=== PATIENT | male | born 1975 | race American Indian/Alaskan Native ===

== ENCOUNTER 2021-08-31 11:37 | Inpatient (IN) | payer SELFPAY ==
[2021-08-31] MEDS ORDERED: SODIUM CHLORIDE 0.9% 1000 ML 1,000 ML IV ONE ×2 (14:47→17:23)
[2021-08-31] MEDS ORDERED: ONDANSETRON 4 MG ODT TAB PO/SL ONE (14:47)
[2021-08-31] MEDS ORDERED: ONDANSETRON 4 MG/2 ML INJ IM ONE (14:55)
[2021-08-31] MEDS ORDERED: ONDANSETRON 4 MG/2 ML INJ IV ONE (14:57)
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
[2021-08-31] MEDS ORDERED: LORazepam 2 MG/ML VIAL ONE (16:17)
[2021-08-31] MEDS ORDERED: levETIRAcetam 1000 MG/NS 0.75% 1,000 MG/100 ML BAG IV ONE (16:20)
[2021-08-31] MEDS ORDERED: LORazepam 2 MG/ML VIAL IV ONE (16:20)
[2021-08-31 16:21] LABS: Alanine Aminotransferase 15 units/L (7-56); Albumin 4.6 g/dL (3.9-5); BUN/Creatinine Ratio 13; Blood Urea Nitrogen 12 mg/dL (9-20); Calcium 9.5 mg/dL (8.4-10.2); Hemolysis Index 32
[2021-08-31 16:27] LABS: Bilirubin,Direct < 0.2 mg/dL (0-0.2)
[2021-08-31 16:32] LABS: Hematocrit 47.6 % (35.5-45.6); Hemoglobin 15.4 gm/dl (11.8-15.2); Mean Corpuscular HGB Conc 32 % (32-34); Mean Corpuscular Volume 94 fl (84-94); Platelet Count 298 K/mm3 (140-440); Red Blood Count 5.07 M/mm3 (3.65-5.03)
[2021-08-31] MEDS ORDERED: cefTRIAXone/NS 2 GM/100 ML 2 GM/100 ML BAG IV ONE (16:51)
[2021-08-31] MEDS ORDERED: VANCOMYCIN 1,250 MG in SODIUM CHLORIDE 0.9% 500 ML 500 ML IV ONE (16:51)
--- NOTE | 2021-08-31 16:52 | Emergency Department Report ---
Blank Doc - Documentation Documentation: [facility] Consult Note # Demographics Consult Type: General Neurology Patient Location: Emergency Room First Name: Miguel A Last Name: Haseeb Date of : 1975 Age: 46 Gender: Male Facility: [facility] Time of Initial Page ( Time): 08/31/2021, 16:30 Time of Return Call ( Time): 08/31/2021, 16:31 # HPI History: pt had N/V since night prior. had a seizure while getting a chest xray. reporting that the weekend started last night. much of his history is not known at this time # Scores Time of exam and NIHSS (): 08/31/2021, 16:39 Level of Consciousness 1a: [0] = Alert; keenly responsive LOC Questions 1b: [2] = Answers neither correctly LOC Commands 1c: [0] = Performs both tasks correctly Best Gaze 2: [0] = Normal Visual 3: [0] = No visual loss Facial Palsy 4: [0] = Normal symmetrical movements Motor Arm Left 5a: [1] = Drift Motor Arm Right 5b: [1] = Drift Motor Leg Left 6a: [3] = No effort against gravity Motor Leg Right 6b: [3] = No effort against gravity Limb Ataxia 7: [0] = Absent Sensory 8: [0] = Normal Best Language 9: [0] = No aphasia Dysarthria 10: [1] = Kiio-fb-mvdgnzms dysarthria Extinction and Inattention 11: [0] = No abnormality NIHSS Total: 11 # Assessment Impression: Seizure Todds Paralysis # Plan Thrombolytic/Intervention: NOT IV Thrombolysis or IA Intervention candidate Thrombolytic Exclusion (< 3 hour window): other (see below) Thrombolytic Exclusion: seizure Thrombolytic/Intraarterial Exclusion: IV thrombolytic and IA intervention considered but not recommended as this patient's symptoms are not clinically consistent with an assumed diagnosis of stroke Imaging: (urgency: STAT): CT Angiogram Head and CT Angiogram Neck AND call back with results if abnormal Imaging: (urgency: routine): MRI Brain with AND without contrast Diagnostic Test: EEG Other: seizure precautions I have discussed my recommendations with the referring provider # Logistics Telemedicine: Interactive 2 way audio and visual telecommunication technology was utilized during this visit
--- NOTE | 2021-08-31 16:54 | XRay Report ---
CHEST 2 VIEWS INDICATION / CLINICAL INFORMATION: abd pain. COMPARISON: Chest x-ray 01/21/2012 FINDINGS: SUPPORT DEVICES: None. HEART / MEDIASTINUM: No significant abnormality. LUNGS / PLEURA: No significant pulmonary or pleural abnormality. No pneumothorax. ADDITIONAL FINDINGS: No significant additional findings. IMPRESSION: 1. No acute findings. Signer Name: Satinder Gross MD Signed: 08/31/2021 4:50 PM Workstation Name: [id number]
[2021-08-31] MEDS ORDERED: levETIRAcetam 500 MG in DEXTROSE 5% IN WATER 100 ML IV ONE (17:00)
[2021-08-31 17:07] LABS: INR 0.84 (0.87-1.13)
[2021-08-31 17:08] LABS: Partial Thromboplastin Time 25.7 Sec. (24.2-36.6)
[2021-08-31] MEDS ORDERED: VANCOMYCIN 1,750 MG in SODIUM CHLORIDE 0.9% 500 ML 500 ML IV ONE (18:00)
[2021-08-31 18:17] LABS: Creatine Kinase MB 3.2 ng/mL (0.0-4.0)
[2021-08-31 18:19] LABS: Alanine Aminotransferase 14 units/L (7-56); Albumin 4.1 g/dL (3.9-5); Blood Urea Nitrogen 10 mg/dL (9-20); Calcium 8.7 mg/dL (8.4-10.2); Hemolysis Index 14
[2021-08-31 18:20] LABS: BUN/Creatinine Ratio 14
[2021-08-31 18:26] LABS: Hematocrit 38.4 % (35.5-45.6); Hemoglobin 13.5 gm/dl (11.8-15.2); Mean Corpuscular HGB Conc 35 % (32-34); Mean Corpuscular Volume 92 fl (84-94); Platelet Count 282 K/mm3 (140-440); Red Blood Count 4.18 M/mm3 (3.65-5.03); Red Cell Distribution Width 13.4 % (13.2-15.2)
--- NOTE | 2021-08-31 19:43 | Cat Scan Report ---
CT CHEST, ABDOMEN, AND PELVIS WITH CONTRAST INDICATION / CLINICAL INFORMATION: Chest/abdominal pain. Seizure. TECHNIQUE: Axial CT images were obtained through the chest, abdomen, and pelvis after Omnipaque 350, [address] scans at this location are performed using CT dose reduction for ALARA by means of automated exposure control. COMPARISON: None available. FINDINGS: HEART/VASCULAR STRUCTUES: No significant abnormality. MEDIASTINUM / JANNETH: Mild residual thymic tissue anterior mediastinum. PLEURA: No pleural effusion. No pneumothorax. LUNGS: Mild dependent patchy opacity. Mild nodular patchy opacity at the inferior aspect of the right upper lobe. ADDITIONAL CHEST FINDINGS: None. LIVER: No significant abnormality. GALLBLADDER: No significant abnormality. BILE DUCTS: No significant abnormality. PANCREAS: No significant abnormality. SPLEEN: No significant abnormality. ADRENALS: No significant abnormality. RIGHT KIDNEY / URETER: No significant abnormality. LEFT KIDNEY / URETER: No significant abnormality. STOMACH and SMALL BOWEL: No significant abnormality. COLON: No significant abnormality. APPENDIX: No significant abnormality. PERITONEUM: No free fluid. No free air. No fluid collection. LYMPH NODES: No significant adenopathy. VASCULAR STRUCTURES: No significant abnormality. URINARY BLADDER: No significant abnormality. REPRODUCTIVE ORGANS: No significant abnormality. ADDITIONAL FINDINGS: Small fat-containing right inguinal hernia. SKELETAL SYSTEM: No significant abnormality. IMPRESSION: 1. Bibasilar atelectasis and mild pneumonia. 2. No acute inflammatory process at the abdomen or pelvis. Signer Name: Julius Perry MD Signed: 08/31/2021 7:38 PM Workstation Name: [id number]
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
--- NOTE | 2021-08-31 19:51 | Cat Scan Report ---
CT angio neck INDICATION / CLINICAL INFORMATION: 46 years Male; stroke sx. TECHNIQUE: Thin cut axial images obtained through the head during IV bolus contrast administration. S agittal, coronal, and 3 plane MIP reconstructions performed by the technologist. NASCET type criteria used evaluate stenoses. All CT scans at this location are performed using CT dose reduction for ALAR A by means of automated exposure control. . COMPARISON: None available. FINDINGS: ARCH: The aortic arch was not included on this exam. CAROTID ARTERIES: The visualized common and internal carotid arteries are widely patent. VERTEBRAL ARTERIES: Slight left dominant vertebral system seen. No significant stenosis appreciated. 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 Disc space narrowing seen at C4-5 and to some degree at other levels. Focal disc disease is seen. Borderline canal narrowing s uggested at C3-4 and perhaps C4-5. Moderate osseous foraminal narrowing is seen on the left at C4-5, C5-6, C6-7 from uncinate hypertrophy. Similar findings seen on the right from C4-5 through C7-T1. IMPRESSION: 1. No significant stenosis appreciated on this limited CTA of the neck. 2. Degenerative changes of the cervical spine as described above. Signer Name: Steve Hinds MD, III Signed: 08/31/2021 7:47 PM Workstation Name: [id number]
[2021-08-31 22:34] LABS: Anisocytosis 1+; Basophils % (Manual) 0 % (0.0-1.8); Eosinophils % (Manual) 0 % (0.0-4.3); Monocytes % (Manual) 0 % (0.0-7.3); Platelet Estimate Consistent w Auto; Total Cells Counted 100
[2021-08-31] MEDS ORDERED: ONDANSETRON 4 MG/2 ML INJ IV PRN (22:39)
[2021-08-31] MEDS ORDERED: MORPHINE 4 MG/1 ML INJ IV PRN (22:39)
[2021-08-31] MEDS ORDERED: PROMETHAZINE 25 MG RECT SUPP PR PRN (22:39)
[2021-08-31] MEDS ORDERED: MORPHINE 2 MG/1 ML INJ IV PRN (22:39)
[2021-08-31] MEDS ORDERED: MAGNESIUM HYDROXIDE (MOM) ORAL LIQD UDC PO PRN ×2 (22:39)
[2021-08-31] MEDS ORDERED: METOCLOPRAMIDE 10 MG TAB PO PRN (22:39)
--- NOTE | 2021-08-31 22:55 | History and Physical Report ---
History of Present Illness Date of examination: 08/31/21 Date of admission: 08/31/2021 Chief complaint: Nausea and Vomiting Abdominal Pain History of present illness: 46-year-old -[place] male with no significant past medical history presents to the emergency room via EMS today complaining of nausea and vomiting with associated generalized abdominal pain which has been ongoing for about 24 hours. Patient has not been quite coherent with this responses however most of the history was gotten from the ER staff. Patient received Zofran and some IV fluid upon arrival in the emergency room with minimal improvement. There has been no history of fever or chills, no chest pain or shortness of breath, no headache or dizziness and no diaphoresis. During the course of patient's stay in the emergency room, he was sent to the radiology department to have an x-ray done which she had a tonic-clonic seizure. There is no known history of seizure disorder. There was no urinary or fecal incontinence. No head injury. He was said to have had some facial asymmetry and some right-sided weakness after the seizure disorder. Neurologist was subsequently consulted and recommendation is to have patient undergo MRI of the brain and EEG. Patient was thereafter loaded with IV Keppra. Work-up in the emergency room today, CT chest shows bibasilar atelectasis and mild pneumonia CT of the abdomen and pelvis shows no acute abnormalities. Labs reveals a leukocytosis of 16.4, hemoglobin of 15.4 and hematocrit of 47.6. Urinalysis was unremarkable. Urine drug screen was positive for cocaine and marijuana. Past History Past Medical History: No medical history Past Surgical History: No surgical history Social history: no significant social history Family history: no significant family history Medications and Allergies Allergies Allergy/AdvReac Type Severity Reaction Status Date / Time No Known Allergies Allergy Verified 08/31/21 11:46 Active Meds: Active Medications Acetaminophen (Acetaminophen 325 Mg Tab) 650 mg PO Q4H PRN PRN Reason: Pain MILD(1-3)/Fever >100.5/FIGUEROA Aspirin (Aspirin 325 Mg Tab) 325 mg PO QDAY JAN Atorvastatin Calcium (Atorvastatin 40 Mg Tab) 40 mg PO QHS JAN Bisacodyl (Bisacodyl 10 Mg Rect Supp) 10 mg SC QDAY PRN PRN Reason: Constipation Sodium Chloride (Nacl 0.9% 1000 Ml) 1,000 mls @ 125 mls/hr IV DIRECT JAN Magnesium Hydroxide (Magnesium Hydroxide (Mom) Oral Liqd Udc) 30 ml PO Q4H PRN PRN Reason: Constipation Magnesium Hydroxide (Magnesium Hydroxide (Mom) Oral Liqd Udc) 30 ml PO Q4H PRN PRN Reason: Constipation Metoclopramide HCl (Metoclopramide 10 Mg Tab) 10 mg PO Q6H PRN PRN Reason: Nausea And Vomiting Morphine Sulfate (Morphine 2 Mg/1 Ml Inj) 2 mg IV Q4H PRN PRN Reason: Pain, Moderate (4-6) Morphine Sulfate (Morphine 4 Mg/1 Ml Inj) 4 mg IV Q4H PRN PRN Reason: Pain , Severe (7-10) Ondansetron HCl (Ondansetron 4 Mg/2 Ml Inj) 4 mg IV Q8H PRN PRN Reason: Nausea And Vomiting Ondansetron HCl (Ondansetron 4 Mg/2 Ml Inj) 4 mg IV Q8H PRN PRN Reason: Nausea And Vomiting Promethazine HCl (Promethazine 25 Mg Rect Supp) 25 mg SC Q6H PRN PRN Reason: Nausea And Vomiting Sodium Chloride (Sodium Chloride 0.9% 10 Ml Flush Syringe) 10 ml IV BID JAN Sodium Chloride (Sodium Chloride 0.9% 10 Ml Flush Syringe) 10 ml IV PRN PRN PRN Reason: LINE FLUSH Sodium Chloride (Sodium Chloride 0.9% 10 Ml Flush Syringe) 10 ml INJ PRN PRN PRN Reason: LINE FLUSH Review of Systems Constitutional: no fever, no chills Ears, nose, mouth and throat: no nasal congestion, no sore throat Cardiovascular: no chest pain, no palpitations Respiratory: no cough, no shortness of breath Gastrointestinal: no abdominal pain, no nausea, no vomiting, no diarrhea Genitourinary Male: no dysuria, no hematuria, no flank pain Musculoskeletal: no neck pain, no low back pain Integumentary: no rash, no pruritis Neurological: seizures, no headaches, no confusion Psychiatric: no anxiety, no depression Endocrine: no polyphagia, no polydipsia, no polyuria, no nocturia Exam - Constitutional Vitals: Temp Pulse Resp BP Pulse Ox 98.7 F 85 17 147/82 98 08/31/21 11:45 08/31/21 18:30 08/31/21 18:30 08/31/21 18:30 08/31/21 18:30 General appearance: Present: no acute distress, well-nourished - EENT Eyes: Present: PERRL, EOM intact. Absent: scleral icterus ENT: hearing intact, clear oral mucosa, dentition normal - Neck Neck: Present: supple, normal ROM - Respiratory Respiratory effort: normal Respiratory: bilateral: CTA - Cardiovascular Rhythm: regular Heart Sounds: Present: S1 & S2. Absent: gallop, systolic murmur, diastolic murmur, rub, click - Extremities Extremities: no ischemia, pulses intact, pulses symmetrical, No edema, normal temperature, normal color, Full ROM Peripheral Pulses: within normal limits - Abdominal General gastrointestinal: Present: soft, non-tender, non-distended, normal bowel sounds. Absent: mass - Integumentary Integumentary: Present: clear, warm, dry, normal turgor. Absent: rash - Musculoskeletal Musculoskeletal: strength equal bilaterally - Psychiatric Psychiatric: appropriate mood/affect, intact judgment & insight, memory intact, cooperative - Neurologic Neurologic: CNII-XII intact, no focal deficits, moves all extremities, other (Appears lethargic) HEART Score - HEART Score Troponin: Troponin T < 0.010 ng/mL (0.00-0.029) 08/31/21 16:45 Results - Labs CBC & Chem 7: 08/31/21 18:19 08/31/21 16:45 Labs: Abnormal lab results 08/31/21 08/31/21 08/31/21 Range/Units 14:44 14:45 16:08 WBC 16.4 H (4.5-11.0) K/mm3 RBC 5.07 H (3.65-5.03) M/mm3 Hgb 15.4 H (11.8-15.2) gm/dl Hct 47.6 H (35.5-45.6) % MCHC (32-34) % Seg Neuts % (Manual) 99.0 H (40.0-70.0) % Lymphocytes % (Manual) 1.0 L (13.4-35.0) % Seg Neutrophils # Man 16.2 H (1.8-7.7) K/mm3 Lymphocytes # (Manual) 0.2 L (1.2-5.4) K/mm3 INR 0.84 L (0.87-1.13) Carbon Dioxide 19 L (22-30) mmol/L Creatinine (0.8-1.3) mg/dL Glucose 137 H (75-100) mg/dL POC Glucose (70-105) mg/dL Total Creatine Kinase (55-170) units/L Lipase 12 L (13-60) units/L Salicylates (2.8-20.0) mg/dL Acetaminophen (10.0-30.0) ug/mL 08/31/21 08/31/21 08/31/21 Range/Units 16:08 16:08 16:25 WBC (4.5-11.0) K/mm3 RBC (3.65-5.03) M/mm3 Hgb (11.8-15.2) gm/dl Hct (35.5-45.6) % MCHC (32-34) % Seg Neuts % (Manual) (40.0-70.0) % Lymphocytes % (Manual) (13.4-35.0) % Seg Neutrophils # Man (1.8-7.7) K/mm3 Lymphocytes # (Manual) (1.2-5.4) K/mm3 INR (0.87-1.13) Carbon Dioxide (22-30) mmol/L Creatinine (0.8-1.3) mg/dL Glucose (75-100) mg/dL POC Glucose 128 H (70-105) mg/dL Total Creatine Kinase (55-170) units/L Lipase (13-60) units/L Salicylates < 0.3 L (2.8-20.0) mg/dL Acetaminophen 5.0 L (10.0-30.0) ug/mL 08/31/21 08/31/21 Range/Units 16:45 18:19 WBC 14.2 H (4.5-11.0) K/mm3 RBC (3.65-5.03) M/mm3 Hgb (11.8-15.2) gm/dl Hct (35.5-45.6) % MCHC 35 H (32-34) % Seg Neuts % (Manual) (40.0-70.0) % Lymphocytes % (Manual) (13.4-35.0) % Seg Neutrophils # Man (1.8-7.7) K/mm3 Lymphocytes # (Manual) (1.2-5.4) K/mm3 INR (0.87-1.13) Carbon Dioxide 20 L (22-30) mmol/L Creatinine 0.7 L (0.8-1.3) mg/dL Glucose 132 H (75-100) mg/dL POC Glucose (70-105) mg/dL Total Creatine Kinase 283 H (55-170) units/L Lipase (13-60) units/L Salicylates (2.8-20.0) mg/dL Acetaminophen (10.0-30.0) ug/mL Assessment and Plan - Patient Problems (1) New onset seizure Current Visit: Yes Status: Acute Plan to address problem: Patient will be placed on seizure precautions. We will schedule for EEG. Patient started on Keppra. Consult placed to neurologist for evaluation and recommendations. (2) Acute CVA (cerebrovascular accident) Current Visit: Yes Status: Acute Plan to address problem: Patient will be scheduled for MRI of the brain, carotid Doppler and echocardiogram. We will await further evaluation and recommendations from neurology. (3) Nausea & vomiting Current Visit: Yes Status: Acute Plan to address problem: Etiology unclear. Will place patient on antiemetic. Patient also placed on IV fluid. (4) Abdominal pain Current Visit: Yes Status: Acute Plan to address problem: We will place on IV analgesic medication as needed. (5) Positive urine drug screen Current Visit: Yes Status: Acute Plan to address problem: UDS was positive for cocaine and marijuana. Patient will be counseled against illicit drug use prior to discharge. We will continue to monitor closely. (6) Pneumonia Current Visit: Yes Status: Acute Plan to address problem: CT chest reveals marked pneumonia. Patient will be placed on empiric IV antibiotics. Unknown if patient is fully vaccinated against COVID-19. (7) DVT prophylaxis Current Visit: Yes Status: Acute Plan to address problem: Patient placed on subcutaneous heparin. (8) Full code status Current Visit: Yes Status: Acute Plan to address problem: Patient is full code.
[2021-08-31 23:01] LABS: Anisocytosis 1+; Basophils % (Manual) 0 % (0.0-1.8); Eosinophils % (Manual) 0 % (0.0-4.3); Platelet Estimate Consistent w Auto; Total Cells Counted 100
[2021-08-31 23:06] LABS: Bacteria,Urine 1+ /HPF (Negative); Bilirubin,Urine NEG (Negative); Blood,Urine SM (Negative); Color,Urine Straw (Yellow); Mucus,Urine FEW /HPF; Protein,Urine <15 mg/dL mg/dL (Negative); Urobilinogen,Urine < 2.0 mg/dL (<2.0)
[2021-08-31 23:07] LABS: Amphetamine Screen,Urine PRESUMPTIVE NEGATIVE; Benzodiazepines Screen,Urine PRESUMPTIVE NEGATIVE; Cannabinoid Screen,Urine PRESUMPTIVE POSITIVE; Cocaine Screen,Urine PRESUMPTIVE POSITIVE; Methadone Screen,Urine PRESUMPTIVE NEGATIVE; Opiate Screen,Urine PRESUMPTIVE NEGATIVE
[2021-09-01] LABS: Creatine Kinase MB 4.5 ng/mL (0.0-4.0)
[2021-09-01 02:09] LABS: C-Reactive Protein 4.4 mg/dL (0.00-1.30)
[2021-09-01 05:00] LABS: Hematocrit 45.7 % (35.5-45.6); Hemoglobin 14.7 gm/dl (11.8-15.2); Mean Corpuscular HGB Conc 32 % (32-34); Mean Corpuscular Volume 94 fl (84-94); Platelet Count 313 K/mm3 (140-440); Red Blood Count 4.88 M/mm3 (3.65-5.03); Red Cell Distribution Width 13.7 % (13.2-15.2)
[2021-09-01 05:05] LABS: BUN/Creatinine Ratio 10; Blood Urea Nitrogen 8 mg/dL (9-20); Calcium 8.8 mg/dL (8.4-10.2); Hemolysis Index 3
[2021-09-01] MEDS: SODIUM CHLORIDE 0.9% 1000 ML 1,000 ML IV SCH (06:02)
[2021-09-01] MEDS: HEPARIN 5,000 UNIT/1 ML VIAL SUB-Q SCH ×3 (06:10→21:17)
[2021-09-01 08:21] LABS: Basophils % (Manual) 0 % (0.0-1.8); Eosinophils % (Manual) 0 % (0.0-4.3); Total Cells Counted 100
[2021-09-01 08:22] LABS: Anisocytosis 1+; Platelet Estimate Consistent w Auto; Toxic Granulation 1+; Toxic Vacuolation Few
--- NOTE | 2021-09-01 08:45 | Cat Scan Report ---
CT head/brain wo con INDICATION / CLINICAL INFORMATION: 46 years Male; seizure. TECHNIQUE: Routine CT head without contrast. All CT scans at this location are performed using CT dos e reduction for ALARA by means of automated exposure control. COMPARISON: None. FINDINGS: BRAIN / INTRACRANIAL CONTENTS: No acute hemorrhage, mass effect, midline shift, hydrocephalus, or acu te, large territorial infarct. No signs of significant atrophy or chronic infarct. No significant whi te matter abnormality seen. CRANIOCERVICAL JUNCTION: No significant abnormality. ORBITS: No significant abnormality of visualized orbits. SINUSES / MASTOIDS: Mild mucosal thickening in the ethmoids. ADDITIONAL FINDINGS: None. IMPRESSION: 1. No focal mass, hemorrhage, hydrocephalus, or acute, large territorial infarct. Signer Name: Steve Hinds MD, III Signed: 08/31/2021 7:26 PM Workstation Name: [id number]
--- NOTE | 2021-09-01 09:08 | Consultation ---
History of Present Illness Consult date: 09/01/21 Reason for Consult: New onset seizure,recreational drug abuse, History of present illness: Nausea and Vomiting Abdominal Pain History of present illness: 46-year-old -Greek male with no significant past medical history presents to the emergency room via EMS today complaining of nausea and vomiting with associated generalized abdominal pain which has been ongoing for about 24 hours. Patient has not been quite coherent with this responses however most of the history was gotten from the ER staff. Patient received Zofran and some IV fluid upon arrival in the emergency room with minimal improvement. There has been no history of fever or chills, no chest pain or shortness of breath, no headache or dizziness and no diaphoresis. During the course of patient's stay in the emergency room, he was sent to the radiology department to have an x-ray done which she had a tonic-clonic seizure. There is no known history of seizure disorder. There was no urinary or fecal incontinence. No head injury. He was said to have had some facial asymmetry and some right-sided weakness after the seizure disorder. Neurologist was subsequently consulted and recommendation is to have patient undergo MRI of the brain and EEG. Patient was thereafter loaded with IV Keppra. Work-up in the emergency room today, CT chest shows bibasilar atelectasis and mild pneumonia CT of the abdomen and pelvis shows no acute abnormalities. Labs reveals a leukocytosis of 16.4, hemoglobin of 15.4 and hematocrit of 47.6. Urinalysis was unremarkable. Urine drug screen was positive for cocaine and marijuana. Past History Past Medical History: No medical history Past Surgical History: No surgical history Social history: no significant social history Family history: no significant family history Medications and Allergies Allergies Allergy/AdvReac Type Severity Reaction Status Date / Time No Known Allergies Allergy Verified 08/31/21 11:46 Active Meds: Active Medications Acetaminophen (Acetaminophen 325 Mg Tab) 650 mg PO Q4H PRN PRN Reason: Pain MILD(1-3)/Fever >100.5/FIGUEROA Aspirin (Aspirin 325 Mg Tab) 325 mg PO QDAY JAN Atorvastatin Calcium (Atorvastatin 40 Mg Tab) 40 mg PO QHS JAN Bisacodyl (Bisacodyl 10 Mg Rect Supp) 10 mg UT QDAY PRN PRN Reason: Constipation Sodium Chloride (Nacl 0.9% 1000 Ml) 1,000 mls @ 125 mls/hr IV DIRECT JAN Magnesium Hydroxide (Magnesium Hydroxide (Mom) Oral Liqd Udc) 30 ml PO Q4H PRN PRN Reason: Constipation Magnesium Hydroxide (Magnesium Hydroxide (Mom) Oral Liqd Udc) 30 ml PO Q4H PRN PRN Reason: Constipation Metoclopramide HCl (Metoclopramide 10 Mg Tab) 10 mg PO Q6H PRN PRN Reason: Nausea And Vomiting Morphine Sulfate (Morphine 2 Mg/1 Ml Inj) 2 mg IV Q4H PRN PRN Reason: Pain, Moderate (4-6) Morphine Sulfate (Morphine 4 Mg/1 Ml Inj) 4 mg IV Q4H PRN PRN Reason: Pain , Severe (7-10) Ondansetron HCl (Ondansetron 4 Mg/2 Ml Inj) 4 mg IV Q8H PRN PRN Reason: Nausea And Vomiting Ondansetron HCl (Ondansetron 4 Mg/2 Ml Inj) 4 mg IV Q8H PRN PRN Reason: Nausea And Vomiting Promethazine HCl (Promethazine 25 Mg Rect Supp) 25 mg UT Q6H PRN PRN Reason: Nausea And Vomiting Sodium Chloride (Sodium Chloride 0.9% 10 Ml Flush Syringe) 10 ml IV BID JAN Sodium Chloride (Sodium Chloride 0.9% 10 Ml Flush Syringe) 10 ml IV PRN PRN PRN Reason: LINE FLUSH Sodium Chloride (Sodium Chloride 0.9% 10 Ml Flush Syringe) 10 ml INJ PRN PRN PRN Reason: LINE FLUSH Review of Systems Constitutional: no fever, no chills Ears, nose, mouth and throat: no nasal congestion, no sore throat Cardiovascular: no chest pain, no palpitations Respiratory: no cough, no shortness of breath Gastrointestinal: no abdominal pain, no nausea, no vomiting, no diarrhea Genitourinary Male: no dysuria, no hematuria, no flank pain Musculoskeletal: no neck pain, no low back pain Integumentary: no rash, no pruritis Neurological: seizures, no headaches, no confusion Psychiatric: no anxiety, no depression Endocrine: no polyphagia, no polydipsia, no polyuria, no nocturia Exam Past History Past Medical History: No medical history Past Surgical History: No surgical history Social history: no significant social history Family history: no significant family history Medications and Allergies Allergies Allergy/AdvReac Type Severity Reaction Status Date / Time No Known Allergies Allergy Verified 08/31/21 11:46 Active Meds: Active Medications Acetaminophen (Acetaminophen 325 Mg Tab) 650 mg PO Q4H PRN PRN Reason: Pain MILD(1-3)/Fever >100.5/FIGUEROA Aspirin (Aspirin 325 Mg Tab) 325 mg PO QDAY JAN Atorvastatin Calcium (Atorvastatin 40 Mg Tab) 40 mg PO QHS JAN Bisacodyl (Bisacodyl 10 Mg Rect Supp) 10 mg UT QDAY PRN PRN Reason: Constipation Heparin Sodium (Porcine) (Heparin 5,000 Unit/1 Ml Vial) 5,000 unit SUB-Q Q8HR JAN Last Admin: 09/01/21 06:10 Dose: 5,000 unit Sodium Chloride (Nacl 0.9% 1000 Ml) 1,000 mls @ 125 mls/hr IV DIRECT JAN Last Admin: 09/01/21 06:02 Dose: 125 mls/hr Levetiracetam 500 mg/ Dextrose 105 mls @ 400 mls/hr IV Q12HR JAN Levofloxacin/Dextrose (Levaquin 750mg/150ml) 750 mg in 150 mls @ 100 mls/hr IV Q24HR JAN; Protocol Last Admin: 09/01/21 04:03 Dose: 100 mls/hr Magnesium Hydroxide (Magnesium Hydroxide (Mom) Oral Liqd Udc) 30 ml PO Q4H PRN PRN Reason: Constipation Metoclopramide HCl (Metoclopramide 10 Mg Tab) 10 mg PO Q6H PRN PRN Reason: Nausea And Vomiting Morphine Sulfate (Morphine 2 Mg/1 Ml Inj) 2 mg IV Q4H PRN PRN Reason: Pain, Moderate (4-6) Morphine Sulfate (Morphine 4 Mg/1 Ml Inj) 4 mg IV Q4H PRN PRN Reason: Pain , Severe (7-10) Ondansetron HCl (Ondansetron 4 Mg/2 Ml Inj) 4 mg IV Q8H PRN PRN Reason: Nausea And Vomiting Promethazine HCl (Promethazine 25 Mg Rect Supp) 25 mg UT Q6H PRN PRN Reason: Nausea And Vomiting Sodium Chloride (Sodium Chloride 0.9% 10 Ml Flush Syringe) 10 ml IV BID JAN Sodium Chloride (Sodium Chloride 0.9% 10 Ml Flush Syringe) 10 ml IV PRN PRN PRN Reason: LINE FLUSH Physical Examination - Vital Signs Vital Signs: Vital Signs Temp Pulse Resp BP Pulse Ox 98.7 F 83 21 140/82 97 08/31/21 11:45 08/31/21 11:45 08/31/21 11:45 08/31/21 11:45 08/31/21 11:45 - Constitutional General appearance: uncomfortable, other (nausea and hives) - EENT EENT: Present: PERRL, mucous membranes moist - Respiratory Respiratory: Present: lungs clear, rhonchi - Cardiovascular Cardiovascular: Present: regular rate, normal S1, normal S2 Extremities: Present: no peripheral edema bilatateraly, no clubbing, cyanosis - Gastrointestinal Gastrointestinal: Present: normoactive bowel sounds - Integumentary Integumentary: Present: normal - Neurologic Cranial nerve examination: PERRL, EOMI, intact Speech examination: intact Sensorimotor examination: intact Detailed motor examination: grossly full strength in - Level of Consciousness 1a. Level of Consciousness: alert/keenly responsive - LOC Questions 1b. LOC Questions: answers both correctly - LOC Command 1c. LOC Commands: performs tasks correctly - Best Gaze 2. Best Gaze: normal - Visual 3. Visual: no visual loss - Facial Palsy 4. Facial Palsy: normal symmetrical movement - Motor Arm 5a. Motor Arm Left: no drift 5b. Motor Arm Right: no drift - Motor Leg 6a. Motor Leg Left: no drift 6b. Motor Leg Right: no drift - Limb Ataxia 7. Limb Ataxia: absent - Sensory 8. Sensory: normal - Best Language 9. Best Language: no aphasia - Dysarthria 10. Dysarthria: normal - Extinction and Inattention 11. Extinction/Inattention: no abnormality - Scoring Total Score: 0 Stroke Severity: No Stroke Symptoms Results - Laboratory Findings CBC and BMP: 09/01/21 04:24 09/01/21 04:24 Abnormal Lab Findings: Abnormal Labs 08/31/21 08/31/21 08/31/21 14:44 14:45 16:08 WBC 16.4 H RBC 5.07 H Hgb 15.4 H Hct 47.6 H MCHC Seg Neuts % (Manual) 99.0 H Lymphocytes % (Manual) 1.0 L Seg Neutrophils # Man 16.2 H Lymphocytes # (Manual) 0.2 L INR 0.84 L Carbon Dioxide 19 L BUN Creatinine Glucose 137 H POC Glucose Lactate Dehydrogenase Total Creatine Kinase CK-MB (CK-2) C-Reactive Protein Lipase 12 L Salicylates Acetaminophen 08/31/21 08/31/21 08/31/21 16:08 16:08 16:25 WBC RBC Hgb Hct MCHC Seg Neuts % (Manual) Lymphocytes % (Manual) Seg Neutrophils # Man Lymphocytes # (Manual) INR Carbon Dioxide BUN Creatinine Glucose POC Glucose 128 H Lactate Dehydrogenase Total Creatine Kinase CK-MB (CK-2) C-Reactive Protein Lipase Salicylates < 0.3 L Acetaminophen 5.0 L 08/31/21 08/31/21 08/31/21 16:45 18:19 23:02 WBC 14.2 H RBC Hgb Hct MCHC 35 H Seg Neuts % (Manual) 95.0 H Lymphocytes % (Manual) 2.0 L Seg Neutrophils # Man 13.5 H Lymphocytes # (Manual) 0.3 L INR Carbon Dioxide 20 L BUN Creatinine 0.7 L Glucose 132 H POC Glucose Lactate Dehydrogenase Total Creatine Kinase 283 H 414 H CK-MB (CK-2) 4.5 H C-Reactive Protein Lipase Salicylates Acetaminophen 08/31/21 09/01/21 09/01/21 23:48 04:24 04:24 WBC 14.5 H RBC Hgb Hct 45.7 H D MCHC Seg Neuts % (Manual) 88.0 H Lymphocytes % (Manual) 9.0 L Seg Neutrophils # Man 12.8 H Lymphocytes # (Manual) INR Carbon Dioxide 21 L BUN 8 L Creatinine Glucose POC Glucose Lactate Dehydrogenase 188 H Total Creatine Kinase CK-MB (CK-2) C-Reactive Protein 4.40 H Lipase Salicylates Acetaminophen 09/01/21 05:13 WBC RBC Hgb Hct MCHC Seg Neuts % (Manual) Lymphocytes % (Manual) Seg Neutrophils # Man Lymphocytes # (Manual) INR Carbon Dioxide BUN Creatinine Glucose POC Glucose 127 H Lactate Dehydrogenase Total Creatine Kinase CK-MB (CK-2) C-Reactive Protein Lipase Salicylates Acetaminophen Assessment and Plan Assessment and Plan 46-year-old -Greek male with no significant past medical history presents to the emergency room via EMS today complaining of nausea and vomiting with associated generalized abdominal pain which has been ongoing for about 24 hours. Patient has not been quite coherent with this responses however most of the history was gotten from the ER staff. Patient received Zofran and some IV fluid upon arrival in the emergency room with minimal improvement. There has been no history of fever or chills, no chest pain or shortness of br eath, no headache or dizziness and no diaphoresis. During the course of patient's stay in the emergency room, he was sent to the radiology department to have an x-ray done which she had a tonic-clonic seizure. There is no known history of seizure disorder. There was no urinary or fecal incontinence. - Patient Problems # New onset seizure - witnessed in ER -Normal neurological exam -recurrent nausea and vomiting -Recreational drug intake -NIH#0 -CT brain is unremarkable -MRI brain with gd is unremarkable -EEG is pending -Seizure precaution, no driving -? not sure if keppra is needed # Acute CVA (cerebrovascular accident) - facial droop on presentation -MRI brain is unremarkable -Recreational drug intake -Echo is with 55-60% EF, bubble study is unremarkable -? ASA 81 mg -stop recreational drugs # Nausea & vomiting -CT chest and abdomen is unremarkable -Etiology unclear. Will place patient on antiemetic. -Patient also placed on IV fluid. # Abdominal pain -We will place on IV analgesic medication as needed. -Amylase and Lipase is pending # Positive urine drug screen -UDS was positive for cocaine and marijuana. -Patient will be counseled against illicit drug use prior to discharge. -We will continue to monitor closely. # Pneumonia -CT chest reveals marked pneumonia. -Patient will be placed on empiric IV antibiotics. -Unknown if patient is fully vaccinated against COVID-19. # DVT prophylaxis -Patient placed on subcutaneous heparin. # Full code status -Patient is full code. will follow
--- NOTE | 2021-09-01 09:30 | Progress Note ---
Assessment and Plan Assessment and plan: Acute CVA New onset seizure Nausea and vomiting Abdominal pain Polysubstance abuse. Urine drug screen positive for cocaine and marijuana. Bilateral pneumonia. CT of chest reveals bilateral pneumonia 09/01/2021. Patient still complains of abdominal pain but CT of the abdomen is negative. Continue IV antibiotics empirically for pneumonia. Follow-up Covid PCR testing. Follow-up blood cultures. Follow-up echocardiogram and MRI of brain. Await neurology consultation. Follow-up EEG for new onset seizure. Continue Keppra 500 mg every 12 hours. PT/OT. History Interval history: No new issues overnight. Patient complaining of diffuse abdominal pain. Hospitalist Physical - Constitutional Vitals: Temp Pulse Resp BP Pulse Ox 98.3 F 100 H 20 124/69 100 09/01/21 03:45 09/01/21 03:45 09/01/21 03:45 09/01/21 07:16 09/01/21 03:45 General appearance: Present: no acute distress, well-nourished - EENT Eyes: Present: PERRL, EOM intact ENT: hearing intact, clear oral mucosa, dentition normal - Neck Neck: Present: supple, normal ROM - Respiratory Respiratory effort: normal Respiratory: bilateral: CTA - Cardiovascular Rhythm: regular Heart Sounds: Present: S1 & S2. Absent: gallop, rub - Extremities Extremities: no ischemia, No edema, Full ROM - Abdominal General gastrointestinal: soft, non-tender, non-distended, normal bowel sounds - Integumentary Integumentary: Present: clear, warm, dry - Neurologic Neurologic: CNII-XII intact, moves all extremities HEART Score - HEART Score Troponin: Troponin T < 0.010 ng/mL (0.00-0.029) 08/31/21 16:45 Results - Labs CBC & Chem 7: 09/01/21 04:24 09/01/21 04:24 Labs: Laboratory Last Values WBC 14.5 K/mm3 (4.5-11.0) H 09/01/21 04:24 RBC 4.88 M/mm3 (3.65-5.03) 09/01/21 04:24 Hgb 14.7 gm/dl (11.8-15.2) 09/01/21 04:24 Hct 45.7 % (35.5-45.6) H D 09/01/21 04:24 MCV 94 fl (84-94) 09/01/21 04:24 MCH 30 pg (28-32) 09/01/21 04:24 MCHC 32 % (32-34) 09/01/21 04:24 RDW 13.7 % (13.2-15.2) 09/01/21 04:24 Plt Count 313 K/mm3 (140-440) 09/01/21 04:24 Lymph % (Auto) Foot Tender 08/31/21 14:44 [place] % (Auto) Foot Tender 08/31/21 14:44 Eos % (Auto) Foot Tender 08/31/21 14:44 Baso % (Auto) Foot Tender 08/31/21 14:44 Lymph # (Auto) Foot Tender 08/31/21 14:44 [place] # (Auto) Foot Tender 08/31/21 14:44 Eos # (Auto) Foot Tender 08/31/21 14:44 Baso # (Auto) Foot Tender 08/31/21 14:44 Add Manual Diff Complete 09/01/21 04:24 Total Counted 100 09/01/21 04:24 Seg Neutrophils % Foot Tender 09/01/21 04:24 Seg Neuts % (Manual) 88.0 % (40.0-70.0) H 09/01/21 04:24 Band Neutrophils % 0 % 09/01/21 04:24 Lymphocytes % (Manual) 9.0 % (13.4-35.0) L 09/01/21 04:24 Reactive Lymphs % (Man) 0 % 09/01/21 04:24 Monocytes % (Manual) 3.0 % (0.0-7.3) 09/01/21 04:24 Eosinophils % (Manual) 0 % (0.0-4.3) 09/01/21 04:24 Basophils % (Manual) 0 % (0.0-1.8) 09/01/21 04:24 Metamyelocytes % 0 % 09/01/21 04:24 Myelocytes % 0 % 09/01/21 04:24 Promyelocytes % 0 % 09/01/21 04:24 Blast Cells % 0 % 09/01/21 04:24 Nucleated RBC % Not Reportable 09/01/21 04:24 Seg Neutrophils # Foot Tender 08/31/21 14:44 Seg Neutrophils # Man 12.8 K/mm3 (1.8-7.7) H 09/01/21 04:24 Band Neutrophils # 0.0 K/mm3 09/01/21 04:24 Lymphocytes # (Manual) 1.3 K/mm3 (1.2-5.4) 09/01/21 04:24 Abs React Lymphs (Man) 0.0 K/mm3 09/01/21 04:24 Monocytes # (Manual) 0.4 K/mm3 (0.0-0.8) 09/01/21 04:24 Eosinophils # (Manual) 0.0 K/mm3 (0.0-0.4) 09/01/21 04:24 Basophils # (Manual) 0.0 K/mm3 (0.0-0.1) 09/01/21 04:24 Metamyelocytes # 0.0 K/mm3 09/01/21 04:24 Myelocytes # 0.0 K/mm3 09/01/21 04:24 Promyelocytes # 0.0 K/mm3 09/01/21 04:24 Blast Cells # 0.0 K/mm3 09/01/21 04:24 WBC Morphology Not Reportable 09/01/21 04:24 Hypersegmented Neuts Not Reportable 09/01/21 04:24 Hyposegmented Neuts Not Reportable 09/01/21 04:24 Hypogranular Neuts Not Reportable 09/01/21 04:24 Smudge Cells Not Reportable 09/01/21 04:24 Toxic Granulation 1+ 09/01/21 04:24 Toxic Vacuolation Few 09/01/21 04:24 Dohle Bodies Not Reportable 09/01/21 04:24 Pelger-Huet Anomaly Not Reportable 09/01/21 04:24 Kp Rods Not Reportable 09/01/21 04:24 Platelet Estimate Consistent w auto 09/01/21 04:24 Clumped Platelets Not Reportable 09/01/21 04:24 Plt Clumps, EDTA Not Reportable 09/01/21 04:24 Large Platelets Not Reportable 09/01/21 04:24 Giant Platelets Not Reportable 09/01/21 04:24 Platelet Satelliting Not Reportable 09/01/21 04:24 Plt Morphology Comment Not Reportable 09/01/21 04:24 RBC Morphology Not Reportable 09/01/21 04:24 Dimorphic RBCs Not Reportable 09/01/21 04:24 Polychromasia Not Reportable 09/01/21 04:24 Hypochromasia Not Reportable 09/01/21 04:24 Poikilocytosis Not Reportable 09/01/21 04:24 Anisocytosis 1+ 09/01/21 04:24 Microcytosis Not Reportable 09/01/21 04:24 Macrocytosis Not Reportable 09/01/21 04:24 Spherocytes Not Reportable 09/01/21 04:24 Pappenheimer Bodies Not Reportable 09/01/21 04:24 Sickle Cells Not Reportable 09/01/21 04:24 Target Cells Not Reportable 09/01/21 04:24 Tear Drop Cells Not Reportable 09/01/21 04:24 Ovalocytes Not Reportable 09/01/21 04:24 Helmet Cells Not Reportable 09/01/21 04:24 [place] Bodies Not Reportable 09/01/21 04:24 Taylor Rings Not Reportable 09/01/21 04:24 Roberta Cells Not Reportable 09/01/21 04:24 Bite Cells Not Reportable 09/01/21 04:24 Crenated Cell Not Reportable 09/01/21 04:24 Elliptocytes Not Reportable 09/01/21 04:24 Acanthocytes (Spur) Not Reportable 09/01/21 04:24 Rouleaux Not Reportable 09/01/21 04:24 Hemoglobin C Crystals Not Reportable 09/01/21 04:24 Schistocytes Not Reportable 09/01/21 04:24 Malaria parasites Not Reportable 09/01/21 04:24 Nate Bodies Not Reportable 09/01/21 04:24 Hem Pathologist Commnt No 09/01/21 04:24 PT 12.5 Sec. (12.2-14.9) 08/31/21 16:08 INR 0.84 (0.87-1.13) L 08/31/21 16:08 APTT 25.7 Sec. (24.2-36.6) 08/31/21 16:08 Thrombin Time 15.6 Sec. (15.1-19.6) 08/31/21 18:19 D-Dimer 217.70 ng/mlDDU (0-234) 08/31/21 23:48 Sodium 138 mmol/L (137-145) 09/01/21 04:24 Potassium 4.2 mmol/L (3.6-5.0) 09/01/21 04:24 Chloride 100.6 mmol/L (98-107) 09/01/21 04:24 Carbon Dioxide 21 mmol/L (22-30) L 09/01/21 04:24 Anion Gap 21 mmol/L 09/01/21 04:24 BUN 8 mg/dL (9-20) L 09/01/21 04:24 Creatinine 0.8 mg/dL (0.8-1.3) 09/01/21 04:24 Estimated GFR > 60 ml/min 09/01/21 04:24 BUN/Creatinine Ratio 10 % 09/01/21 04:24 Glucose 99 mg/dL (75-100) 09/01/21 04:24 POC Glucose 127 mg/dL (70-105) H 09/01/21 05:13 Calcium 8.8 mg/dL (8.4-10.2) 09/01/21 04:24 Total Bilirubin 0.40 mg/dL (0.1-1.2) 08/31/21 16:45 Direct Bilirubin < 0.2 mg/dL (0-0.2) 08/31/21 14:45 Indirect Bilirubin 0.3 mg/dL 08/31/21 14:45 AST 18 units/L (5-40) 08/31/21 16:45 ALT 14 units/L (7-56) 08/31/21 16:45 Alkaline Phosphatase 46 units/L (35-129) 08/31/21 16:45 Ammonia 58.0 umol/L (25-60) 08/31/21 16:08 Lactate Dehydrogenase 188 units/L (91-180) H 08/31/21 23:48 Total Creatine Kinase 414 units/L (55-170) H 08/31/21 23:02 CK-MB (CK-2) 4.5 ng/mL (0.0-4.0) H 08/31/21 23:02 CK-MB (CK-2) Rel Index 1.0 (0-4) 08/31/21 23:02 Troponin T < 0.010 ng/mL (0.00-0.029) 08/31/21 16:45 C-Reactive Protein 4.40 mg/dL (0.00-1.30) H 08/31/21 23:48 Total Protein 7.1 g/dL (6.3-8.2) 08/31/21 16:45 Albumin 4.1 g/dL (3.9-5) 08/31/21 16:45 Albumin/Globulin Ratio 1.4 % 08/31/21 16:45 Lipase 12 units/L (13-60) L 08/31/21 14:45 Urine Color Straw (Yellow) 08/31/21 22:48 Urine Turbidity Clear (Clear) 08/31/21 22:48 Urine pH 7.0 (5.0-7.0) 08/31/21 22:48 Ur Specific [place] 1.025 (1.003-1.030) 08/31/21 22:48 Urine Protein <15 mg/dl mg/dL (Negative) 08/31/21 22:48 Urine Glucose (UA) Neg mg/dL (Negative) 08/31/21 22:48 Urine Ketones Neg mg/dL (Negative) 08/31/21 22:48 Urine Blood Sm (Negative) 08/31/21 22:48 Urine Nitrite Neg (Negative) 08/31/21 22:48 Urine Bilirubin Neg (Negative) 08/31/21 22:48 Urine Urobilinogen < 2.0 mg/dL (<2.0) 08/31/21 22:48 Ur Leukocyte Esterase Neg (Negative) 08/31/21 22:48 Urine WBC (Auto) 1.0 /HPF (0.0-6.0) 08/31/21 22:48 Urine RBC (Auto) 5.0 /HPF (0.0-6.0) 08/31/21 22:48 Urine Bacteria (Auto) 1+ /HPF (Negative) 08/31/21 22:48 Urine Mucus Few /HPF 08/31/21 22:48 Salicylates < 0.3 mg/dL (2.8-20.0) L 08/31/21 16:08 Urine Opiates Screen Presumptive negative 08/31/21 22:48 Urine Methadone Screen Presumptive negative 08/31/21 22:48 Acetaminophen 5.0 ug/mL (10.0-30.0) L 08/31/21 16:08 Ur Barbiturates Screen Presumptive negative 08/31/21 22:48 Ur Phencyclidine Scrn Presumptive negative 08/31/21 22:48 Ur Amphetamines Screen Presumptive negative 08/31/21 22:48 U Benzodiazepines Scrn Presumptive negative 08/31/21 22:48 Urine Cocaine Screen Presumptive positive 08/31/21 22:48 U Marijuana (THC) Screen Presumptive positive 08/31/21 22:48 Drugs of Abuse Note Disclamer 08/31/21 22:48 Plasma/Serum Alcohol < 0.01 % (0-0.07) 08/31/21 16:08 Microbiology: Microbiology 08/31/21 16:08 Peripheral/Venous Blood Culture - Preliminary Culture in Progress 08/31/21 16:25 Peripheral/Venous Blood Culture - Preliminary Culture in Progress [place]/IV: Voiding Method Toilet Active Medications - Current Medications Current Medications: Generic Name Dose Route Start Last Admin Trade Name Freq PRN Reason Stop Dose Admin Acetaminophen 650 mg 08/31/21 22:39 Acetaminophen 325 Mg Tab PO Q4H PRN Pain MILD(1-3)/Fever >100.5/FIGUEROA Aspirin 325 mg 09/01/21 10:00 Aspirin 325 Mg Tab PO QDAY JAN Atorvastatin Calcium 40 mg 09/01/21 22:00 Atorvastatin 40 Mg Tab PO QHS JAN Bisacodyl 10 mg 08/31/21 22:39 Bisacodyl 10 Mg Rect Supp VT QDAY PRN Constipation Heparin Sodium (Porcine) 5,000 unit 09/01/21 06:00 09/01/21 06:10 Heparin 5,000 Unit/1 Ml Vial SUB-Q 5,000 unit Q8HR JAN Administration Sodium Chloride 1,000 mls @ 125 mls/hr 08/31/21 22:45 09/01/21 06:02 Nacl 0.9% 1000 Ml IV 125 mls/hr DIRECT JAN Administration Levetiracetam 500 mg/ Dextrose 105 mls @ 400 mls/hr 09/01/21 10:00 IV Q12HR JAN Levofloxacin/Dextrose 750 mg in 150 mls @ 100 mls/hr 08/31/21 23:45 09/01/21 04:03 Levaquin 750mg/150ml IV 100 mls/hr Q24HR JAN Administration Protocol Magnesium Hydroxide 30 ml 08/31/21 22:39 Magnesium Hydroxide (Mom) Oral Liqd Udc PO Q4H PRN Constipation Metoclopramide HCl 10 mg 08/31/21 22:39 Metoclopramide 10 Mg Tab PO Q6H PRN Nausea And Vomiting Morphine Sulfate 2 mg 08/31/21 22:39 Morphine 2 Mg/1 Ml Inj IV Q4H PRN Pain, Moderate (4-6) Morphine Sulfate 4 mg 08/31/21 22:39 Morphine 4 Mg/1 Ml Inj IV Q4H PRN Pain , Severe (7-10) Ondansetron HCl 4 mg 08/31/21 22:39 Ondansetron 4 Mg/2 Ml Inj IV Q8H PRN Nausea And Vomiting Promethazine HCl 25 mg 08/31/21 22:39 Promethazine 25 Mg Rect Supp VT Q6H PRN Nausea And Vomiting Sodium Chloride 10 ml 09/01/21 10:00 Sodium Chloride 0.9% 10 Ml Flush Syringe IV BID JAN Sodium Chloride 10 ml 08/31/21 22:39 Sodium Chloride 0.9% 10 Ml Flush Syringe IV PRN PRN LINE FLUSH
[2021-09-01] MEDS ORDERED: ASPIRIN 325 MG TAB PO SCH ×2 (10:00→12:20)
--- NOTE | 2021-09-01 11:14 | Magnetic Resonance Report ---
MR brain wo/w con INDICATION / CLINICAL INFORMATION: 46 years Male; stroke, NEW ONSET SEIZURES, WEAKNESS LT LEG. TECHNIQUE: Multiplanar, multisequence MR images of the brain were obtained. COMPARISON: None available. FINDINGS: BRAIN / INTRACRANIAL CONTENTS: The brain parenchyma appears to demonstrate appropriate signal charact eristics. The ventricular system is within normal limits in size and configuration without evidence o f subependymal nodules. No extra-axial fluid collections or significant mass effect is identified. Th e hippocampi demonstrate symmetric volume and signal intensity. The diffusion imaging reveals no evid ence of recent infarction. No definitive intracranial enhancing lesions are appreciated. CRANIOCERVICAL JUNCTION: No significant abnormality. VASCULAR FLOW-VOIDS: No significant abnormality. ORBITS: No significant abnormality of visualized orbits. SINUSES / MASTOIDS: No significant abnormality in the visualized paranasal sinuses or mastoid air luna ls. ADDITIONAL FINDINGS: None. IMPRESSION: 1. The MRI of the brain appears unremarkable without evidence of recent infarction or acute intracran ial process. Signer Name: Alex Kruse MD Signed: 09/01/2021 11:10 AM Workstation Name: [id number]
[2021-09-01] MEDS: levETIRAcetam 500 MG in DEXTROSE 5% IN WATER 100 ML IV SCH ×2 (12:08→21:17)
[2021-09-01] MEDS: ONDANSETRON 4 MG/2 ML INJ IV PRN ×2 (12:08→21:18)
--- NOTE | 2021-09-01 13:00 | Vascular Lab Report ---
DUPLEX DOPPLER ULTRASOUND CAROTID, BILATERAL INDICATION / CLINICAL INFORMATION: stroke. COMPARISON: CTA neck 08/31/2021. FINDINGS: RIGHT CAROTID: No significant atherosclerotic plaque. - PLAQUE ESTIMATE (%): < 50% - CCA velocity: 99 cm/sec. - ICA peak systolic velocity: 103 cm/sec. - ICA/CCA PSV Ratio: Less than 2. Right Vertebral Artery: Antegrade flow. LEFT CAROTID: No significant atherosclerotic plaque. - PLAQUE ESTIMATE (%): < 50% - CCA velocity: 99 cm/sec. - ICA peak systolic velocity: 93 cm/sec. - ICA/CCA PSV Ratio: Less than 2. Left Vertebral Artery: Antegrade flow. IMPRESSION: 1. Right Internal Carotid Artery: Normal. No stenosis. 2. Left Internal Carotid Artery: Normal. No stenosis. Velocity criteria are extrapolated from diameter data as defined by the Society of Radiologists in Ul trasound Consensus Conference, Radiology 2003; 229;340-346. NO STENOSIS (NORMAL) - Plaque = none; ICA PSV < 125 cm/sec; ICA/CCA PSV Ratio < 2.0 <50% STENOSIS - Plaque < 50%; ICA PSV < 125 cm/sec; ICA/CCA PSV Ratio < 2.0 50-69% STENOSIS - Plaque > 50%; ICA PSV = 125-230 cm/sec; ICA/CCA PSV Ratio = 2.0-4.0 >70% BUT <100% STENOSIS - Plaque > 50%; ICA PSV > 230 cm/sec; ICA/CCA PSV Ratio > 4.0 NEAR OCCLUSION - Plaque = visible lumen; ICA PSV = high/low/none; ICA/CCA PSV Ratio = variable TOTAL OCCLUSION - Plaque = no lumen; ICA PSV = none; ICA/CCA PSV Ratio = N/A Scribed by: Kiesha Trejo RDMS, RVT, RMSKS Scribed: 09/01/2021 11:28 AM I have reviewed the images, agree with this report, and edited this report as needed. Signer Name: Darshan Muller MD Signed: 09/01/2021 12:56 PM Workstation Name: [id number]
[2021-09-01] MEDS: LORazepam 2 MG/ML VIAL IV PRN (21:17)
[2021-09-02] MEDS: LORazepam 2 MG/ML VIAL IV PRN ×3 (02:31→21:09)
[2021-09-02] MEDS: HEPARIN 5,000 UNIT/1 ML VIAL SUB-Q SCH ×3 (05:49→21:09)
[2021-09-02] MEDS: levETIRAcetam 500 MG in DEXTROSE 5% IN WATER 100 ML IV SCH ×2 (11:26→21:09)
--- NOTE | 2021-09-02 12:34 | Progress Note ---
Assessment and Plan Assessment and Plan 46-year-old -[place] male with no significant past medical history presents to the emergency room via EMS today complaining of nausea and vomiting with associated generalized abdominal pain which has been ongoing for about 24 hours. Patient has not been quite coherent with this responses however most of the history was gotten from the ER staff. Patient received Zofran and some IV fluid upon arrival in the emergency room with minimal improvement. There has been no history of fever or chills, no chest pain or shortness of breath, no headache or dizziness and no diaphoresis. During the course of patient's stay in the emergency room, he was sent to the radiology department to have an x-ray done which she had a tonic-clonic seizure. There is no known history of seizure disorder. There was no urinary or fecal incontinence. - Patient Problems # New onset seizure - witnessed in ER -Normal neurological exam -recurrent nausea and vomiting -Recreational drug intake -NIH#0 -CT brain is unremarkable -MRI brain with gd is unremarkable -EEG is remarkable for diffuse slowing -Seizure precaution, no driving -? not sure if keppra is needed # Acute CVA (cerebrovascular accident) - facial droop on presentation -MRI brain is unremarkable -Recreational drug intake -Echo is with 55-60% EF, bubble study is unremarkable -? ASA 81 mg -stop recreational drugs # Encephalopathy - multi factorial in part is related to seizure -r/o infection # Nausea & vomiting -CT chest and abdomen is unremarkable -Etiology unclear. Will place patient on antiemetic. -Patient also placed on IV fluid. # Abdominal pain -We will place on IV analgesic medication as needed. -Amylase and Lipase is pending # Positive urine drug screen -UDS was positive for cocaine and marijuana. -Patient will be counseled against illicit drug use prior to discharge. -We will continue to monitor closely. # Pneumonia -CT chest reveals marked pneumonia. -Patient will be placed on empiric IV antibiotics. -Unknown if patient is fully vaccinated against COVID-19. # DVT prophylaxis -Patient placed on subcutaneous heparin. # Full code status -Patient is full code. will follow as needed Subjective Date of service: 09/02/21 Interval history: No reported seizure, he is still sleepy , follows commands, no focal weakness is noted -EEG is remarkable for diffuse slowing Objective - Vital Sign Vital Signs - 12hr 09/02/21 09/02/21 09/02/21 03:57 07:20 09:07 Temperature 98.6 F 98.6 F Pulse Rate 89 91 H Respiratory 18 18 Rate Blood Pressure 115/65 Blood Pressure 127/70 [Right] O2 Sat by Pulse 96 100 100 Oximetry 09/02/21 10:00 Temperature Pulse Rate Respiratory Rate Blood Pressure Blood Pressure [Right] O2 Sat by Pulse 96 Oximetry - General Apperance Constitutional: comfortable - EENT EENT: PERRL, mucous membranes moist - Respiratory Respiratory: lungs clear, rhonchi - Cardiovascular Cardiovascular: regular rate, normal S1, normal S2 Extremities: no peripheral edema bilat, no clubbing, cyanosis - Gastrointestinal Gastrointestinal: normoactive bowel sounds - Integumentary Integumentary: normal - Neurologic Cranial nerve examination: PERRL, EOMI, intact Speech examination: intact Detailed motor examination: grossly full strength in - Laboratory Findings CBC and BMP: 09/01/21 04:24 09/01/21 04:24 Abnormal Lab Findings: Abnormal Labs 08/31/21 08/31/21 08/31/21 14:44 14:45 16:08 WBC 16.4 H RBC 5.07 H Hgb 15.4 H Hct 47.6 H MCHC Seg Neuts % (Manual) 99.0 H Lymphocytes % (Manual) 1.0 L Seg Neutrophils # Man 16.2 H Lymphocytes # (Manual) 0.2 L INR 0.84 L Carbon Dioxide 19 L BUN Creatinine Glucose 137 H POC Glucose Lactate Dehydrogenase Total Creatine Kinase CK-MB (CK-2) C-Reactive Protein Lipase 12 L Salicylates Acetaminophen 08/31/21 08/31/21 08/31/21 16:08 16:08 16:25 WBC RBC Hgb Hct MCHC Seg Neuts % (Manual) Lymphocytes % (Manual) Seg Neutrophils # Man Lymphocytes # (Manual) INR Carbon Dioxide BUN Creatinine Glucose POC Glucose 128 H Lactate Dehydrogenase Total Creatine Kinase CK-MB (CK-2) C-Reactive Protein Lipase Salicylates < 0.3 L Acetaminophen 5.0 L 08/31/21 08/31/21 08/31/21 16:45 18:19 23:02 WBC 14.2 H RBC Hgb Hct MCHC 35 H Seg Neuts % (Manual) 95.0 H Lymphocytes % (Manual) 2.0 L Seg Neutrophils # Man 13.5 H Lymphocytes # (Manual) 0.3 L INR Carbon Dioxide 20 L BUN Creatinine 0.7 L Glucose 132 H POC Glucose Lactate Dehydrogenase Total Creatine Kinase 283 H 414 H CK-MB (CK-2) 4.5 H C-Reactive Protein Lipase Salicylates Acetaminophen 08/31/21 09/01/21 09/01/21 23:48 04:24 04:24 WBC 14.5 H RBC Hgb Hct 45.7 H D MCHC Seg Neuts % (Manual) 88.0 H Lymphocytes % (Manual) 9.0 L Seg Neutrophils # Man 12.8 H Lymphocytes # (Manual) INR Carbon Dioxide 21 L BUN 8 L Creatinine Glucose POC Glucose Lactate Dehydrogenase 188 H Total Creatine Kinase CK-MB (CK-2) C-Reactive Protein 4.40 H Lipase Salicylates Acetaminophen 09/01/21 05:13 WBC RBC Hgb Hct MCHC Seg Neuts % (Manual) Lymphocytes % (Manual) Seg Neutrophils # Man Lymphocytes # (Manual) INR Carbon Dioxide BUN Creatinine Glucose POC Glucose 127 H Lactate Dehydrogenase Total Creatine Kinase CK-MB (CK-2) C-Reactive Protein Lipase Salicylates Acetaminophen
[2021-09-02] MEDS: ASPIRIN EC 81 MG TAB PO SCH (13:28)
[2021-09-02] MEDS: ACETAMINOPHEN 325 MG TAB PO PRN (16:28)
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
[2021-09-02] MEDS: ONDANSETRON 4 MG/2 ML INJ IV PRN (21:09)
[2021-09-03] MEDS: HEPARIN 5,000 UNIT/1 ML VIAL SUB-Q SCH ×3 (05:11→21:57)
[2021-09-03 09:41] LABS: Basophils % (Auto) 0.6 % (0.0-1.8); Hematocrit 42.4 % (35.5-45.6); Hemoglobin 14.8 gm/dl (11.8-15.2); Lymphocytes # (Auto) 1.2 K/mm3 (1.2-5.4); Lymphocytes % (Auto) 16.9 % (13.4-35.0); Mean Corpuscular HGB Conc 35 % (32-34); Mean Corpuscular Volume 91 fl (84-94); Monocytes # (Auto) 0.7 K/mm3 (0.0-0.8); Monocytes % (Auto) 9.2 % (0.0-7.3); Platelet Count 310 K/mm3 (140-440); Red Blood Count 4.65 M/mm3 (3.65-5.03); Red Cell Distribution Width 13.2 % (13.2-15.2)
--- NOTE | 2021-09-03 10:27 | XRay Report ---
CHEST 1 VIEW INDICATION: Pneumonia follow-up. COMPARISON: 08/31/2021 FINDINGS: SUPPORT DEVICES: None. HEART: Within normal limits. LUNGS/PLEURA: Minimal patchy right basilar airspace disease noted. Lungs are otherwise clear. ADDITIONAL FINDINGS: None. IMPRESSION: 1. Lung findings as above. Signer Name: Americo Garrison MD Signed: 09/03/2021 9:35 AM Workstation Name: [id number]
[2021-09-03 10:40] LABS: Alanine Aminotransferase QNS units/L (7-56); Albumin QNS g/dL (3.9-5); BUN/Creatinine Ratio QNS; Blood Urea Nitrogen QNS mg/dL (9-20); Calcium QNS mg/dL (8.4-10.2)
[2021-09-03 10:41] LABS: Hemolysis Index QNS
[2021-09-03] MEDS: ASPIRIN EC 81 MG TAB PO SCH (10:42)
--- NOTE | 2021-09-03 11:04 | Progress Note ---
Assessment and Plan Assessment and Plan 46-year-old -[place] male with no significant past medical history presents to the emergency room via EMS today complaining of nausea and vomiting with associated generalized abdominal pain which has been ongoing for about 24 hours. Patient has not been quite coherent with this responses however most of the history was gotten from the ER staff. Patient received Zofran and some IV fluid upon arrival in the emergency room with minimal improvement. There has been no history of fever or chills, no chest pain or shortness of breath, no headache or dizziness and no diaphoresis. During the course of patient's stay in the emergency room, he was sent to the radiology department to have an x-ray done which she had a tonic-clonic seizure. There is no known history of seizure disorder. There was no urinary or fecal incontinence. - Patient Problems # New onset seizure - witnessed in ER -Normal neurological exam -recurrent nausea and vomiting -Recreational drug intake -NIH#0 -CT brain is unremarkable -MRI brain with gd is unremarkable -EEG is remarkable for diffuse slowing -Seizure precaution, no driving -? not sure if keppra is needed # Acute CVA (cerebrovascular accident) - facial droop on presentation -MRI brain is unremarkable -Recreational drug intake -Echo is with 55-60% EF, bubble study is unremarkable -? ASA 81 mg -stop recreational drugs # Encephalopathy - multi factorial in part is related to seizure -r/o infection # Nausea & vomiting -CT chest and abdomen is unremarkable -Etiology unclear. Will place patient on antiemetic. -Patient also placed on IV fluid. # Abdominal pain -We will place on IV analgesic medication as needed. -Amylase and Lipase is pending # Positive urine drug screen -UDS was positive for cocaine and marijuana. -Patient will be counseled against illicit drug use prior to discharge. -We will continue to monitor closely. # Pneumonia -CT chest reveals marked pneumonia. -Patient will be placed on empiric IV antibiotics. -Unknown if patient is fully vaccinated against COVID-19. # DVT prophylaxis -Patient placed on subcutaneous heparin. # Full code status -Patient is full code. nothings to add seizure precaution no driving stop recreational drugs no indication for seizure medications for now it is provoked seizure related to drug abuse work up is unremarkable will sign off Subjective Date of service: 09/03/21 Interval history: No reported seizure, he is still sleepy , follows commands, no focal weakness is noted -EEG is remarkable for diffuse slowing complaint today of back pain started on liquid diet Objective - Vital Sign Vital Signs - 12hr 09/03/21 04:00 Temperature 99.1 F Pulse Rate 80 Respiratory 19 Rate Blood Pressure 140/75 [Right] O2 Sat by Pulse 97 Oximetry - General Apperance Constitutional: comfortable - EENT EENT: PERRL, mucous membranes moist - Respiratory Respiratory: chest non-tender, lungs clear, rhonchi - Cardiovascular Cardiovascular: regular rate, normal S1, normal S2 Extremities: no peripheral edema bilat, no clubbing, cyanosis - Gastrointestinal Gastrointestinal: normoactive bowel sounds - Integumentary Integumentary: normal - Neurologic Cranial nerve examination: PERRL, EOMI, intact Speech examination: intact Detailed motor examination: grossly full strength in - Laboratory Findings CBC and BMP: 09/03/21 07:59 09/03/21 07:59 Abnormal Lab Findings: Abnormal Labs 08/31/21 08/31/21 08/31/21 14:44 14:45 16:08 WBC 16.4 H RBC 5.07 H Hgb 15.4 H Hct 47.6 H MCHC [place] % (Auto) Seg Neutrophils % Seg Neuts % (Manual) 99.0 H Lymphocytes % (Manual) 1.0 L Seg Neutrophils # Man 16.2 H Lymphocytes # (Manual) 0.2 L INR 0.84 L Carbon Dioxide 19 L BUN Creatinine Glucose 137 H POC Glucose Lactate Dehydrogenase Total Creatine Kinase CK-MB (CK-2) C-Reactive Protein Lipase 12 L Salicylates Acetaminophen 08/31/21 08/31/21 08/31/21 16:08 16:08 16:25 WBC RBC Hgb Hct MCHC [place] % (Auto) Seg Neutrophils % Seg Neuts % (Manual) Lymphocytes % (Manual) Seg Neutrophils # Man Lymphocytes # (Manual) INR Carbon Dioxide BUN Creatinine Glucose POC Glucose 128 H Lactate Dehydrogenase Total Creatine Kinase CK-MB (CK-2) C-Reactive Protein Lipase Salicylates < 0.3 L Acetaminophen 5.0 L 08/31/21 08/31/21 08/31/21 16:45 18:19 23:02 WBC 14.2 H RBC Hgb Hct MCHC 35 H [place] % (Auto) Seg Neutrophils % Seg Neuts % (Manual) 95.0 H Lymphocytes % (Manual) 2.0 L Seg Neutrophils # Man 13.5 H Lymphocytes # (Manual) 0.3 L INR Carbon Dioxide 20 L BUN Creatinine 0.7 L Glucose 132 H POC Glucose Lactate Dehydrogenase Total Creatine Kinase 283 H 414 H CK-MB (CK-2) 4.5 H C-Reactive Protein Lipase Salicylates Acetaminophen 08/31/21 09/01/21 09/01/21 23:48 04:24 04:24 WBC 14.5 H RBC Hgb Hct 45.7 H D MCHC [place] % (Auto) Seg Neutrophils % Seg Neuts % (Manual) 88.0 H Lymphocytes % (Manual) 9.0 L Seg Neutrophils # Man 12.8 H Lymphocytes # (Manual) INR Carbon Dioxide 21 L BUN 8 L Creatinine Glucose POC Glucose Lactate Dehydrogenase 188 H Total Creatine Kinase CK-MB (CK-2) C-Reactive Protein 4.40 H Lipase Salicylates Acetaminophen 09/01/21 09/03/21 09/03/21 05:13 07:55 07:59 WBC RBC Hgb Hct MCHC 35 H [place] % (Auto) 9.2 H Seg Neutrophils % 73.3 H Seg Neuts % (Manual) Lymphocytes % (Manual) Seg Neutrophils # Man Lymphocytes # (Manual) INR Carbon Dioxide BUN Creatinine Glucose POC Glucose 127 H 109 H Lactate Dehydrogenase Total Creatine Kinase CK-MB (CK-2) C-Reactive Protein Lipase Salicylates Acetaminophen
--- NOTE | 2021-09-03 17:23 | Electrocardiograph Report ---
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
[2021-09-03] MEDS: levETIRAcetam 500 MG in DEXTROSE 5% IN WATER 100 ML IV SCH (17:36)
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
[2021-09-03] MEDS ORDERED: KETOROLAC 30 MG/1 ML INJ IV PRN (21:41)
[2021-09-03] MEDS: ACETAMINOPHEN 325 MG TAB PO PRN (21:57)
[2021-09-04] MEDS: HEPARIN 5,000 UNIT/1 ML VIAL SUB-Q SCH (06:08)
[2021-09-04] MEDS ORDERED: PANTOPRAZOLE 40 MG TAB PO SCH (07:30)
[2021-09-04] MEDS: SODIUM CHLORIDE 0.9% 1000 ML 1,000 ML IV SCH (12:18)
[2021-09-04] MEDS: ASPIRIN EC 81 MG TAB PO SCH (12:19)
[2021-09-04 13:11] VITALS: BP 143/85
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
== END 2021-09-04 18:41 | disposition home or self-care (01) | DRG 177 ==
LOC: ED 11:37 → 4A 09-01 00:25
PROVIDERS: ADMIT Internal Medicine Geriatric Medicine; ATTEND Internal Medicine
DX: J69.0 Pneumonitis due to inhalation of food and vomit (principal); G92.9 Unspecified toxic encephalopathy; G40.89 Other seizures; F14.10 Cocaine abuse, uncomplicated; Z20.822 Contact with and (suspected) exposure to COVID-19
CPT/HCPCS: 36415; 70450; 70496; 70498; 70553; 71045; 71046; 71260; 74177; 80048; 80053; 80076; 80307; 80320; 81001; 82140; 82550; 82553; 82962; 83615; 83690; 84145; 84484; 85007; 85025; 85379; 85610; 85670; 85730; 86140; 87040; 87086; 93005; 93010; 93306; 93880; 95819; G0378; J3490; J7060; Q0162; A9575; C8929; G0480; J0696; J1644; J1885; J1953; J1956; J2060; J2270; J2405; J3370; J7030; J7040; Q9967; U0003